=== PATIENT | female | born 1960 | race Caucasian/White ===

== ENCOUNTER 2024-06-07 10:19 | Emergency (ER) | payer OTHER ==
--- NOTE | 2024-06-07 12:09 | XR ---
EXAMINATION TYPE: XR chest 2V DATE OF EXAM: 06/07/2024 CLINICAL HISTORY: difficulty breathing TECHNIQUE: Frontal and lateral views of the chest are obtained. COMPARISON: None FINDINGS: There is increased density anteriorly the right lung base could reflect developing infiltra te. Correlate clinically. Hyperinflation compatible with COPD. The cardiac silhouette size is within normal limits. The osseous structures are intact. IMPRESSION: There is increased density anteriorly the right lung base could reflect developing infil trate. Correlate clinically. [facility], , 06/07/2024 12:07 PM
[2024-06-07 12:15] LABS: Basophils % (A) 0 %; Eosinophils # (A) 0.1 k/uL (0-0.7); Eosinophils % (A) 2 %; HCT 38.3 % (34.0-46.0); Lymphocytes # (A) 1.7 k/uL (1.0-4.8); Lymphocytes % (A) 27 %; MCH 30.2 pg (25.0-35.0); MCV 88.8 fL (80.0-100.0); Mean Platelet Volume 8.1; Monocytes # (A) 0.3 k/uL (0-1.0); Monocytes % (A) 5 %; Neutrophils % (A) 64 %; Platelet Count 266 k/uL (150-450); RBC 4.31 m/uL (3.80-5.40); RDW 13.9 % (11.5-15.5); WBC 6.2 k/uL (3.8-10.6)
--- NOTE | 2024-06-07 12:23 | ED ---
General Adult HPI - General Chief complaint: Upper Respiratory Infection Stated complaint: LISA Time Seen by Provider: 06/07/24 11:05 Source: patient, RN notes reviewed Mode of arrival: ambulatory Limitations: no limitations - History of Present Illness Initial comments: 64-year-old female presents to the emergency department for evaluation of upper respiratory symptoms x 5 days. Patient reports that she has been coughing and congested. She notes that she is currently at [facility] for rehab and other people in the facility have tested positive for COVID. Patient does state that she was tested at [place] and was negative. She denies known fever but admits to chills. Patient admits to feeling more winded. - Related Data Allergies Allergy/AdvReac Type Severity Reaction Status Date / Time No Known Allergies Allergy Verified 06/07/24 11:44 Review of Systems ROS Statement: Those systems with pertinent positive or pertinent negative responses have been documented in the HPI. ROS Other: All systems not noted in ROS Statement are negative. Past Medical History Past Medical History: No Reported History History of Any Multi-Drug Resistant Organisms: None Reported Past Psychological History: PTSD Smoking Status: Current every day smoker Past Alcohol Use History: None Reported Past Drug Use History: Heroin General Exam Limitations: no limitations General appearance: alert, in no apparent distress Head exam: Present: atraumatic, normocephalic, normal inspection Course Vital Signs 06/07/24 06/07/24 10:28 13:16 Temperature 97.7 F 97.9 F Pulse Rate 56 L 59 L Respiratory 12 16 Rate Blood Pressure 114/73 109/69 O2 Sat by Pulse 96 98 Oximetry Medical Decision Making - Medical Decision Making Was pt. sent in by a medical professional or institution (, PA, TRAINER, urgent care, hospital, or usp...) When possible be specific @ -[No] Did you speak to anyone other than the patient for history (EMS, parent, family, police, friend...)? What history was obtained from this source @ -[No] Did you review nursing and triage notes (agree or disagree)? Why? @ -[I reviewed and agree with nursing and triage notes] Were old charts reviewed (outside hosp., previous admission, EMS record, old EKG, old radiological studies, urgent care reports/EKG's, usp records)? Report findings @ -[No old charts were reviewed] Differential Diagnosis (chest pain, altered mental status, abdominal pain women, abdominal pain men, vaginal bleeding, weakness, fever, dyspnea, syncope, headache, dizziness, GI bleed, back pain, seizure, CVA, palpatations, mental health, musculoskeletal)? @ -[COVID, influenza, RSV, pneumonia, this list is not all inclusive] EKG interpreted by me (3pts min.). @ -[EKG at 1145 shows sinus bradycardia rate of 47, RI 159, QRS 90, QT/QTc 431/393] X-rays interpreted by me (1pt min.). @ -[Chest x-ray shows possible developing infiltrate] CT interpreted by me (1pt min.). @ -[None done] U/S interpreted by me (1pt. min.). @ -[None done] What testing was considered but not performed or refused? (CT, X-rays, U/S, labs)? Why? @ -[None] What meds were considered but not given or refused? Why? @ -[None] Did you discuss the management of the patient with other professionals (professionals i.e. , PA, TRAINER, lab, RT, psych nurse, social work faculty member, tray filler, teacher, air control/anti air warfare officer, manager rn case)? Give summary @ -[No] Was smoking cessation discussed for >3mins.? @ -[No] Was critical care preformed (if so, how long)? @ -[No] Were there social determinants of health that impacted care today? How? (Homelessness, low income, unemployed, alcoholism, drug addiction, transportation, low edu. Level, literacy, decrease access to med. care, prison, rehab)? @ -[No] Was there de-escalation of care discussed even if they declined (Discuss DNR or withdrawal of care, Hospice)? DNR status @ -[No] What co-morbidities impacted this encounter? (DM, HTN, Smoking, COPD, CAD, Cancer, CVA, ARF, Chemo, Hep., AIDS, mental health diagnosis, sleep apnea, morbid obesity)? @ -[None] Was patient admitted / discharged? Hospital course, mention meds given and route, prescriptions, significant lab abnormalities, going to OR and other pertinent info. @ -[Discharge. Patient presented emergency department for evaluation of upper respiratory symptoms x 5 days. Laboratory studies were obtained revealing no significant leukocytosisPatient is a positive for COVID. Chest x-ray obtained with findings of possible developing pneumonia which is likely COVID-related and therefore will not be started on antibiotics. Patient is satting 96 to 98% on room air. She will be discharged back to [place] advised symptomatic treatment at this time. She is understanding and agreeable with this plan. Patient stable at time of discharge. Case discussed with Dr. Moreira] Undiagnosed new problem with uncertain prognosis? @ -[No] Drug Therapy requiring intensive monitoring for toxicity (Heparin, Nitro, Insulin, Cardizem)? @ -[No] Were any procedures done? @ -[No] Diagnosis/symptom? @ -[COVID] Acute, or Chronic, or Acute on Chronic? @ -Acute Uncomplicated (without systemic symptoms) or Complicated (systemic symptoms)? @ -Uncomplicated Side effects of treatment? @ -[No] Exacerbation, Progression, or Severe Exacerbation? @ -[No] Poses a threat to life or bodily function? How? (Chest pain, USA, MS, pneumonia, PE, COPD, DKA, ARF, appy, cholecystitis, CVA, Diverticulitis, Homicidal, Suicidal, threat to staff... and all critical care pts) @ -[No] - Lab Data Result diagrams: 06/07/24 11:47 06/07/24 11:47 Lab Results 06/07/24 06/07/24 06/07/24 Range/Units 11:47 11:47 11:47 WBC 6.2 (3.8-10.6) k/uL RBC 4.31 (3.80-5.40) m/uL Hgb 13.0 (11.4-16.0) gm/dL Hct 38.3 (34.0-46.0) % MCV 88.8 (80.0-100.0) fL MCH 30.2 (25.0-35.0) pg MCHC 34.0 (31.0-37.0) g/dL RDW 13.9 (11.5-15.5) % Plt Count 266 (150-450) k/uL MPV 8.1 Neutrophils % 64 % Lymphocytes % 27 % Monocytes % 5 % Eosinophils % 2 % Basophils % 0 % Neutrophils # 4.0 (1.3-7.7) k/uL Lymphocytes # 1.7 (1.0-4.8) k/uL Monocytes # 0.3 (0-1.0) k/uL Eosinophils # 0.1 (0-0.7) k/uL Basophils # 0.0 (0-0.2) k/uL Sodium 138 (137-145) mmol/L Potassium 4.6 (3.5-5.1) mmol/L Chloride 109 H (98-107) mmol/L Carbon Dioxide 24 (22-30) mmol/L Anion Gap 5 mmol/L BUN 9 (7-17) mg/dL Creatinine 0.69 (0.52-1.04) mg/dL Est GFR (CKD-EPI)AfAm >90 (>60 ml/min/1.73 sqM) Est GFR (CKD-EPI)NonAf >90 (>60 ml/min/1.73 sqM) Glucose 66 L (74-99) mg/dL Calcium 8.5 (8.4-10.2) mg/dL Total Bilirubin 0.9 (0.2-1.3) mg/dL AST 79 H (14-36) U/L ALT 15 (4-34) U/L Alkaline Phosphatase 87 (38-126) U/L NT-Pro-B Natriuret Pep 673 pg/mL Total Protein 7.0 (6.3-8.2) g/dL Albumin 4.0 (3.5-5.0) g/dL Influenza Type A (PCR) Not Detected (Not Detectd) Influenza Type B (PCR) Not Detected (Not Detectd) RSV (PCR) Not Detected (Not Detectd) SARS-CoV-2 (PCR) Detected A (Not Detectd) Disposition Clinical Impression: COVID Disposition: HOME SELF-CARE Condition: Stable Instructions (If sedation given, give patient instructions): COVID-19 (Coronavirus Disease 2019) (ED) Additional Instructions: Please follow up with your primary care provider. Return to the emergency department for new or worsening symptoms. Is patient prescribed a controlled substance at d/c from ED?: No Referrals: None,Stated [Primary Care Provider] - 1-2 days
[2024-06-07 12:34] LABS: ALT 15 U/L (4-34); African American GFR (CKD) >90 (>60 ml/min/1.73 sqM); Anion Gap 5 mmol/L; Blood Urea Nitrogen 9 mg/dL (7-17); Calcium 8.5 mg/dL (8.4-10.2); Carbon Dioxide 24 mmol/L (22-30); Chloride 109 mmol/L (98-107); Glucose 66 mg/dL (74-99); Non-African American GFR(CKD) >90 (>60 ml/min/1.73 sqM); Sodium 138 mmol/L (137-145); Total Bilirubin 0.9 mg/dL (0.2-1.3)
[2024-06-07 12:41] LABS: NT-Pro-B-Type Natriuretic Pept 673 pg/mL
[2024-06-07 12:58] LABS: Potassium 4.6 mmol/L (3.5-5.1)
[2024-06-07 12:59] LABS: AST 79 U/L (14-36); Alkaline Phosphatase 87 U/L (38-126)
[2024-06-07 13:17] VITALS: BP 109/69; PULSE 59; RESP 16; TEMP 97.9
== END 2024-06-07 13:51 | disposition home or self-care (01) ==
LOC: EC 10:19
DX: U07.1 COVID-19 (principal); F17.200 Nicotine dependence, unspecified, uncomplicated
CPT/HCPCS: 36415; 71046; 80053; 83880; 85025; 87636; 99285